=== PATIENT | female | born 1960 | race Caucasian/White ===

== ENCOUNTER 2020-10-14 08:15 | Outpatient (REF) | payer BC, SELFPAY ==
--- NOTE | ~2020-10-14 | MM_ITS ---
EXAMINATION: MM SCREENING DIGITAL BREAST TOMOSYNTHESIS, BILATERAL CLINICAL INFORMATION: Screening. Asymptomatic. The lifetime risk of breast cancer based on the Tyrer-Cuzick Model is 8%. COMPARISON: Mammography: 10/11/2019, 08/03/2018, 05/22/2017 TECHNIQUE: Digital mammography is performed in craniocaudal and mediolateral oblique views along with computer-aided detection (CAD). Digital breast tomosynthesis is performed in implant-displaced craniocaudal and implant-displaced mediolateral oblique views along with computer-aided detection (CAD). Synthesized 2D images are generated from the tomosynthesis. Additional right MLO view is provided. FINDINGS: There are scattered areas of fibroglandular density (ACR BI-RADS breast composition Category b). There are no significant masses, abnormal calcifications, or other abnormalities. The implant contours are smooth and similar to prior studies. Parenchymal pattern is similar to prior exams. No developing density. The axilla are unremarkable. MM/MM tomosynthesis screen imp BI IMPRESSION: No mammographic evidence of malignancy. ASSESSMENT: BI-RADS 1: Negative RECOMMENDATION: Routine annual mammography screening. This patient's information was entered into a reminder system with a target due date for their next mammogram.
== END 2020-10-14 08:16 | disposition home or self-care (01) ==
LOC: HO.MAMMO 08:15
PROVIDERS: PCP Nurse Practitioner Family; Visit Provider Nurse Practitioner Family
DX: Z12.31 Encounter for screening mammogram for malignant neoplasm of breast (principal)
CPT/HCPCS: 77063; 77067

== ENCOUNTER 2021-03-31 07:38 | Outpatient (REF) | payer BC, SELFPAY ==
[2021-03-31 08:30] LABS: COVID-19 Test Negative (Negative)
== END 2021-03-31 07:39 | disposition home or self-care (01) ==
LOC: HO.LAB 07:38
PROVIDERS: Visit Provider Internal Medicine
DX: Z20.822 Contact with and (suspected) exposure to COVID-19 (principal)
CPT/HCPCS: 36415; 87635; C9803

== ENCOUNTER 2021-05-11 14:00 | Outpatient (RCR) | payer BC, SELFPAY | END 2021-05-17 11:39 | disposition home or self-care (01) | LOC: HO.PT 14:00 | PROVIDERS: PCP Nurse Practitioner Family; Visit Provider Nurse Practitioner Family | DX: R42 Dizziness and giddiness (principal) | CPT/HCPCS: 95992; 97162 ==

== ENCOUNTER 2021-10-19 07:33 | Outpatient (REF) | payer BC, SELFPAY ==
--- NOTE | ~2021-10-19 | MM_ITS ---
EXAMINATION: MM SCREENING DIGITAL BREAST TOMOSYNTHESIS, BILATERAL CLINICAL INFORMATION: Screening. Asymptomatic. The lifetime risk of breast cancer based on the Tyrer-Cuzick Model is 10%. COMPARISON: Mammography: 10/14/2020, 10/11/2019, 08/03/2018, 05/22/2017 TECHNIQUE: Digital mammography is performed in craniocaudal and mediolateral oblique views along with computer-aided detection (CAD). Digital breast tomosynthesis is performed in implant-displaced craniocaudal and implant-displaced mediolateral oblique views along with computer-aided detection (CAD). Synthesized 2D images are generated from the tomosynthesis. FINDINGS: There are scattered areas of fibroglandular density (ACR BI-RADS breast composition Category b). Parenchymal pattern is similar to prior studies. No developing density or interval mass or architectural abnormality. No abnormal calcifications. The implant contours are smooth and similar to prior exams. The axilla are unremarkable. No significant changes from prior studies. MM/MM tomosynthesis screen imp BI IMPRESSION: No mammographic evidence of malignancy. ASSESSMENT: BI-RADS 1: Negative RECOMMENDATION: Routine annual mammography screening. This patient's information was entered into a reminder system with a target due date for their next mammogram.
== END 2021-10-19 07:34 | disposition home or self-care (01) ==
LOC: HO.MAMMO 07:33
PROVIDERS: Visit Provider Nurse Practitioner Family
DX: Z12.31 Encounter for screening mammogram for malignant neoplasm of breast (principal)
CPT/HCPCS: 77063; 77067

== ENCOUNTER 2021-12-28 07:46 | Outpatient (REF) | payer BC, SELFPAY ==
--- NOTE | ~2021-12-28 | XR_ITS ---
EXAMINATION: XR SHOULDER, RIGHT CLINICAL INFORMATION: Right shoulder pain COMPARISON: None TECHNIQUE: Three views of the right shoulder. FINDINGS: Bone alignment is normal. No fracture or dislocation is seen. There is mild arthritis at the acromioclavicular and glenohumeral joints. Soft tissues are unremarkable. XR/XR shoulder RT min 2V IMPRESSION: Mild arthritis.
== END 2021-12-28 07:47 | disposition home or self-care (01) ==
LOC: HO.HOSX 07:46
PROVIDERS: Visit Provider Physician Assistant
DX: M25.511 Pain in right shoulder (principal)
CPT/HCPCS: 73030

== ENCOUNTER 2022-01-25 17:03 | Outpatient (REF) | payer BC, SELFPAY ==
--- NOTE | ~2022-01-25 | XR_ITS ---
EXAMINATION: XR WRIST, RIGHT CLINICAL INFORMATION: Pain. COMPARISON: None TECHNIQUE: PA, lateral, and oblique views of the right wrist. FINDINGS: No acute fractures or malalignment. Decreased bone mineralization. 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 No erosions. No abnormal soft tissue calcifications. Diffuse nonspecific soft tissue swelling. XR/XR wrist RT min 3V IMPRESSION: 1. No acute fractures or malalignment. 2. 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
== END 2022-01-25 17:04 | disposition home or self-care (01) ==
LOC: HO.HOSX 17:03
PROVIDERS: Visit Provider Orthopaedic Surgery
DX: M25.531 Pain in right wrist (principal)
CPT/HCPCS: 73110

== ENCOUNTER 2022-03-29 07:00 | Outpatient (RCR) | payer BC, SELFPAY ==
--- NOTE | 2022-03-11 14:30 | MHC.PT.EP ---
[facility] [place] Office [place] Office [place] Office [address] [place] [address] [address] [phone] F: [phone] F: [phone] F: [phone] F: [phone] Physical Therapy Plan of Care Date of Evaluation: Date of Surgery: Diagnosis: Rt RC TEAR, RUPTURE Rt SHOULDER Assessment: 62 YO FEMALE REF TO PT W Rt SHOULDER PAIN- PROGRESSIVE x 2-3 MONTHS. 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 Pt HAS LIMITED AROM IN Rt SH AND CERV REGION, DECR STRENGTH IN Rt SH COMPLEX, (+) PAIN W PALP Rt ANT GH AND MID DELT. FINDINGS CONSISTENT W A SHOULDER IMPINGEMENT AND POSSIBLE RC INVOLVEMENT- FUNCTIONAL LIMITATIONS INCLUDE TYPING, LIFTING, REACHING ABOVE OR POSTERIORLY, ETC. Pt WOULD BENEFIT FROM PT TO ADDRESS THE ABOVE FINDINGS, MONITOR CERVICAL SXS, REVISE HEP/ EXER ROUTINE, AND DEV SELF-SX MGMT TECHN TO REDUCE IMPINGEMENT TYPE SXS AT THIS TIME. Frequency and Duration: The patient will be seen 2 x WK x 5 WKS Short Term Goals: *Pt'S Rt SH PAIN DECR TO 2-3/10 AT MAX W REG ADLS/ WORK *Pt INDEP W SELF-CORRECTION OF HER POSTURE IN VARIED ADL OR WORK TASKS *Pt DEMON (-) Rt IMPINGEMENT SIGN *Pt DEMON IMPROVED AROM Rt SH AND CERV REGION Fdc Goals: *PT INDEP W PROGR HEP AND SELF SX MGMT TECHN IN 4 WKS *Pt DEMON IMPROVED STRENGTH IN Rt SH COMPLEX *Pt RESUME REG ADLS EVIDENT W IMPROVED SPADI SCORE (32/130 AT EVAL)IN 4 WKS Treatment Plan: Modalities to reduce pain, spasms and effusion. Manual therapy to restore motion and function. Therapeutic exercise to improve strength and flexibility. Neuromuscular re-education for posture and balance. Therapeutic activities to return to functional activities of daily living. Electronically signed by: VICENTE ROBLEDO,PT Please sign and return to therapist. Thank you for your referral.
--- NOTE | 2022-04-19 08:47 | MHC.PT.DC ---
[facility] [place] Office [place] Office [place] Office [address] Ken Devine [address] [phone] F: [phone] F: [phone] F: [phone] F: [phone] Physical Therapy Discharge Report Diagnosis: Rt RC TEAR, RUPTURE Rt SHOULDER Date of Surgery: Date of Evaluation: 03/11/22 Date of Discharge: 04/19/22 Treatments to Date: 6 Cancellations to Date: 0 No Shows to Date: 0 Discharge Status: Achieved Goals Improved Function Independent with HEP Patient Elected to Stop Discharge Summary: THE Pt HAS RESPONDED WELL TO PT INTERVENTION FOR Rt SHOULDER/ CERVICAL PAIN- SHE DEMON IMPROVED POSTURAL SELF-CORRECTION AND WE MODIFIED HER HEP TO REDUCE FURTHER STRESS TO HER LEFT RC/ AND CERVICAL REGIONS. Pt PLEASED W HER PROGRESS AND HAS MET HER PT GOALS AT THIS TIME- SHE WAS NOTING VERTIGO SXS AND WE EDUC Pt RE PURSUING TREATMENT IS THESE SXS PERSIST. Electronically signed by: VICENTE ROBLEDO,PT Please sign and return to therapist. Thank you for your referral.
== END 2022-04-19 08:48 | disposition home or self-care (01) ==
LOC: HO.PT 07:00
PROVIDERS: Visit Provider Physician Assistant
DX: M75.102 Unspecified rotator cuff tear or rupture of left shoulder, not specified as traumatic (principal)
CPT/HCPCS: 97110; 97140; 97162

== ENCOUNTER 2022-05-27 08:00 | Outpatient (RCR) | payer BC, SELFPAY ==
[2022-05-23 08:02] VITALS: BP 104/63; PULSE 67
== END 2022-06-24 15:04 | disposition home or self-care (01) ==
LOC: HO.PT 08:00
PROVIDERS: PCP Nurse Practitioner Family; Visit Provider Nurse Practitioner Family
DX: R42 Dizziness and giddiness (principal); M75.102 Unspecified rotator cuff tear or rupture of left shoulder, not specified as traumatic
CPT/HCPCS: 95992; 97112; 97161

== ENCOUNTER → 2022-10-25 07:30 | Outpatient (BNV) | payer BC, SELFPAY | PROVIDERS: PCP Nurse Practitioner Family; Visit Provider Radiology Diagnostic Radiology | DX: Z12.31 Encounter for screening mammogram for malignant neoplasm of breast (principal) | CPT/HCPCS: 77063; 77067 ==

== ENCOUNTER 2022-10-25 07:31 | Outpatient (REF) | payer BC, SELFPAY ==
--- NOTE | ~2022-10-25 | MM_ITS ---
EXAMINATION: BONE DENSITOMETRY CLINICAL INDICATION: Osteopenia. COMPARISON: Baseline BD dated 10/11/2019. TECHNIQUE: Using a Lukkin DXA System (software version: 13.1) manufactured by [employer], dual-energy x-ray absorptiometry was performed of the lumbar spine and left hip. The images are of good technical quality. Summary results are attached. FINDINGS: LEFT FEMUR, NECK: Current: BMD 0.914 g/cm2, Z-score 0.4, T-score -0.9, normal. Baseline: BMD 0.877 g/cm2. LEFT FEMUR, TOTAL: Current: BMD 0.915 g/cm2, Z-score 0.3, T-score -0.7, normal, 0.2% decrease from baseline (<5% change is not significant). Baseline: BMD 0.917 g/cm2. AP SPINE L1-L4: Current: BMD 1.046 g/cm2, Z-score 0.2, T-score -1.1, osteopenia, 0.4% decrease from baseline (<5% change is not significant). Baseline: BMD 1.050 g/cm2. IDENTIFIED RISK FACTORS: Menopause. HISTORY OF FRACTURE: None listed. MEDICATIONS: Calcium or multivitamin. Vitamin D. MM/XR DEXA axial skeleton IMPRESSION: 1. DIAGNOSIS: Osteopenia based on the lowest T-score value of -1.1 in the lumbar spine applying World Health Organization criteria. 2. 10-YEAR FRACTURE RISK PREDICTION, FRAX: Major osteoporotic fracture (clinical spine, forearm, hip or shoulder) 7.8%. Hip fracture 0.5%. 3. Treatment Recommendations: NOF guidelines recommend consideration for treatment in postmenopausal women and men age 50 and older presenting with the following: -A hip or vertebral (clinical or morphometric) fracture. -T-score less than or equal to -2.5 at the femoral neck or spine after appropriate evaluation to exclude secondary causes. -Low bone mass at the hip or spine and a 10-year fracture probability by FRAX of greater than or equal to 3% for hip fracture or greater than or equal to 20% for major osteoporotic fracture based on the [place] adapted WHO algorithm. 4. Other Recommendations: All treatment decisions require clinical judgment and consideration of individual patient factors, including patient preferences, comorbidities, previous drug use, risk factors not captured in the FRAX model (e.g. frailty, falls, vitamin D deficiency, increased bone turnover, interval significant decline in bone density) and possible under or overestimation of fracture risk by FRAX. Additional medical evaluation for secondary cause of low bone mineral density may be appropriate. FUTURE SCAN RECOMMENDATION: People with diagnosed cases of osteoporosis or at high risk for fracture should have regular bone mineral density tests. For patients eligible for Medicare, routine testing is allowed once every 2 years. The testing frequency can be increased to one year for patients who have rapidly progressing disease, those who are receiving or discontinuing medical therapy to restore bone mass, or have additional risk factors.
--- NOTE | ~2022-10-25 | MM_ITS ---
EXAMINATION: MM SCREENING DIGITAL BREAST TOMOSYNTHESIS, BILATERAL CLINICAL INFORMATION: Screening. Asymptomatic. The lifetime risk of breast cancer based on the Tyrer-Cuzick Model is 6.9%. COMPARISON: Mammography: 10/19/2021, and exams dating back to 2014. TECHNIQUE: Digital mammography is performed in craniocaudal and mediolateral oblique views along with computer-aided detection (CAD). Digital breast tomosynthesis is performed in implant-displaced craniocaudal and implant-displaced mediolateral oblique views along with computer-aided detection (CAD). Synthesized 2D images are generated from the tomosynthesis. FINDINGS: There are scattered areas of fibroglandular density (ACR BI-RADS breast composition Category b). There are no significant masses, abnormal calcifications, or other abnormalities. Implants appear smooth and intact without evidence of complication. The overall parenchymal pattern is stable. MM/MM tomosynthesis screen imp BI IMPRESSION: No mammographic evidence of malignancy. ASSESSMENT: BI-RADS BI-RADS 1 - Negative RECOMMENDATION: Routine annual mammography screening. 1 year F/U This patient's information was entered into a reminder system with a target due date for their next mammogram.
== END 2022-10-25 07:32 | disposition home or self-care (01) ==
LOC: HO.MAMMO 07:31
PROVIDERS: PCP Nurse Practitioner Family; Visit Provider Nurse Practitioner Family
DX: Z12.31 Encounter for screening mammogram for malignant neoplasm of breast (principal); Z13.820 Encounter for screening for osteoporosis; Z78.0 Asymptomatic menopausal state; M85.80 Other specified disorders of bone density and structure, unspecified site
CPT/HCPCS: 77063; 77067; 77080

== ENCOUNTER 2023-01-22 21:07 | Emergency (ER) | payer BC, SELFPAY ==
[2023-01-22 21:12] VITALS: BP 126/76; PULSE 70; RESP 18; TEMP 36.7; O2SAT 96; BMI 26.6
--- NOTE | 2023-01-22 22:35 | ED_ITS ---
HPI - General Adult General Chief complaint: General Medical Stated complaint: Accidental epi pen stick Time Seen by Provider: 01/22/23 22:35 Source: patient Mode of arrival: ambulatory Limitations: no limitations History of Present Illness HPI narrative: 62-year-old female who presents emergency department for evaluation of accidental injection of epinephrine into her right thumb. The patient was helping her sister clean out her closet. There was an epinephrine pen which the patient took to the sink and a attempted to empty the pen into the sink. She states she pushed on the orange part of the EpiPen and accidentally injected epinephrine into her right thumb. She states that it took some effort to pulled the needle out of her thumb. Her thumb became very white and cold. She L upset palpitations but no chest pain, lightheadedness or dizziness. She contacted department to have nitroglycerin paste placed on her thumb. At the time my evaluation, the tip of the patient's thumb has a small puncture wound and is ecchymotic. The patient's thumb is warm and neurovascularly intact. Related Data Home Medications Medication Instructions Recorded Confirmed No Known Home Meds 12/28/21 01/26/22 Allergies Allergy/AdvReac Type Severity Reaction Status Date / Time No Known Allergies Allergy Unverified 01/26/22 12:35 [No Known Allergies*] Review of Systems Review of Systems: Yes all other systems are reviewed and are negative [facility] Past Medical History [facility] Narrative: Past medical history: Arthritis Social History Social History Alcohol intake: current Alcohol intake frequency: holidays/special occasions only Alcohol type: wine Patient Tobacco Use Status: Never used Tobacco Current occupational status: employed 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, 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 Physical Exam ED Vital Signs: Vital Signs - 24 hr 01/22/23 21:12 Temperature 98.0 F Pulse Rate 70 Respiratory Rate 18 Blood Pressure 126/76 Pulse Oximetry 96 Oxygen Delivery Method Room Air BMI result Body Mass Index 26.6 Vital signs were no Exam: General: Awake, alert in no distress Extremities: Examination patient's right thumb reveals a very small puncture wound at the tip of the thumb, the tip of the thumb is ecchymotic, thumb is neurovascularly intact Psych: Pleasant, cooperative Medical Decision Making Medical Decision Making MDM Narrative: 62-year-old female who presents emergency department for evaluation for accidental injection EpiPen into her right thumb. Patient most likely receive the full dose in her thumb based on her description. At the time of evaluation however her thumb is neurovascularly intact and does not appear to be vascularly compromised. She does have a small puncture wound to the tip of her thumb with ecchymosis. The patient does not know her last tetanus shot was given an I advised her to contact her PCP tomorrow and if her last tetanus shot was 5 years or greater than this should be updated to help restore immunity against tetanus. The patient was advised to watch for signs of infection and to follow-up with her PCP if she develops any signs. At this time I do not think that the patient needs any further workup. Differential Diagnosis Differential Diagnoses: The differential diagnosis associated with the presentation includes Differential diagnosis includes but is not limited to accidental injection of EpiPen in to the thumb, vascular compromise, infection Discharge Plan Discharge Clinical Impression: Accidental injection of epinephrine Qualifiers: Encounter type: initial encounter Qualified Code(s): T44.5X1A - Poisoning by predominantly beta-adrenoreceptor agonists, accidental (unintentional), initial encounter Additional Instructions: You accidentally injected herself with epinephrine into your left thumb. At this time your thumb looks normal with just some bruising, there is no vascular compromise and I do not think that you need any further treatment such as nitro paste. Whenever there is a puncture wound, we worry about tetanus exposure. Call your doctor tomorrow morning, if your last tetanus shot was 5 years or greater, then you need a tetanus shot within the next several days to booster your immune system against tetanus. Watch for signs of infection which would include redness, swelling, drainage of pus, red streaks going away from the wound. If you developed any signs of infection then you should talk to her doctor about getting started on antibiot ics. Follow-up with your doctor in 2 days. Please return to the emergency department if your symptoms get worse or if you develop any symptoms that are concerning to you. Prescriptions: No Action No Known Home Meds
[2023-01-22 22:58] VITALS: BP 119/74; PULSE 76; RESP 16; TEMP 36.7; O2SAT 96
== END 2023-01-22 23:05 | disposition home or self-care (01) ==
PROVIDERS: Emergency Provider Emergency Medicine Emergency Medical Services; PCP Nurse Practitioner Family
DX: S61.031A Puncture wound without foreign body of right thumb without damage to nail, initial encounter (principal); W26.9XXA Contact with unspecified sharp object(s), initial encounter; Y93.9 Activity, unspecified; Y92.9 Unspecified place or not applicable; Y99.9 Unspecified external cause status
CPT/HCPCS: 99282; 99284

== ENCOUNTER 2023-11-02 07:22 | Outpatient (REF) | payer MEDICARE, SELFPAY ==
--- NOTE | ~2023-11-02 | MM_ITS ---
EXAMINATION: MM SCREENING DIGITAL BREAST TOMOSYNTHESIS, BILATERAL WITH BREAST IMPLANTS CLINICAL INFORMATION: Screening. Asymptomatic. COMPARISON: Mammography: This study is compared to prior mammography dating back to 2020. TECHNIQUE: Digital mammography is performed in craniocaudal and mediolateral oblique views along with computer-aided detection (CAD). Digital breast tomosynthesis is performed in implant-displaced craniocaudal and implant-displaced mediolateral oblique views along with computer-aided detection (CAD). Synthesized 2D images are generated from the tomosynthesis. FINDINGS: There are scattered areas of fibroglandular density (ACR BI-RADS breast composition Category b). There are bilateral, mammographically intact, retroglandular breast implants. There are no significant masses, abnormal calcifications, or other abnormalities. MM/MM tomosynthesis screen imp BI IMPRESSION: There are no significant changes from prior study. ASSESSMENT: BI-RADS BI-RADS 1 - Negative RECOMMENDATION: Routine annual mammography screening. 1 year F/U This patient's information was entered into a reminder system with a target due date for their next mammogram.
== END 2023-11-02 07:23 | disposition home or self-care (01) ==
LOC: HO.MAMMO 07:22
PROVIDERS: PCP Student in an Organized Health Care Education/Training Program; Visit Provider Student in an Organized Health Care Education/Training Program
DX: Z12.31 Encounter for screening mammogram for malignant neoplasm of breast (principal)
CPT/HCPCS: 77063; 77067

== ENCOUNTER → 2023-11-02 07:30 | Outpatient (BNV) | payer MEDICARE, SELFPAY | PROVIDERS: PCP Student in an Organized Health Care Education/Training Program; Visit Provider Radiology Diagnostic Radiology | DX: Z12.31 Encounter for screening mammogram for malignant neoplasm of breast (principal) | CPT/HCPCS: 77063; 77067 ==

== ENCOUNTER 2024-12-21 09:06 | Outpatient (REF) | payer MEDICARE, SELFPAY ==
--- NOTE | ~2024-12-21 | MM_ITS ---
EXAMINATION: MM SCREENING DIGITAL BREAST TOMOSYNTHESIS, BILATERAL CLINICAL INFORMATION: Screening. Asymptomatic. COMPARISON: Mammography: Comparison is made with relevant avialable priors. TECHNIQUE: Digital mammography is performed in craniocaudal and mediolateral oblique views along with computer-aided detection (CAD). Digital breast tomosynthesis is performed in implant-displaced craniocaudal and implant-displaced mediolateral oblique views along with computer-aided detection (CAD). FINDINGS: There are scattered areas of fibroglandular density (ACR BI-RADS breast composition Category b). Right prepectoral saline implant is stable. The left implant is ruptured and distorted. There are no significant masses, abnormal calcifications, or other abnormalities. MM/MM tomosynthesis screen imp BI IMPRESSION: No mammographic evidence of malignancy. Ruptured left implant. ASSESSMENT: BI-RADS BI-RADS 2 - Benign Findings RECOMMENDATION: Routine annual mammography screening. Recommend clinical follow-up for ruptured left implant. 1 year F/U This patient's information was entered into a reminder system with a target due date for their next mammogram. Electronically signed by: Pat Cuevas DO 12/23/2024 09:56 AM EDT
--- OUTSIDE RECORDS SUMMARY | 2024-12-21 09:09 | XMS_ITS | Clinical Summary ---
Author Organization [facility] Address [address] [place] [address] Care Team Providers Care Malware Analyst Name Role Phone Unavailable Primary Care Provider Unavailabl e Social History Tobacco Use Types Packs/Day Years Used Date Smoking Tobacco: Never Assessed Comments Unknown Sex and Gender Information Value Date Recorded Sex Assigned at Not on file Legal Sex Female 10:40 AM EDT Gender Identity Not on file Sexual Orientation Not on file Plan of Treatment Upcoming Encounters Date Type Department Care Team (Latest Contact Info) Description 02/25/2025 7:30 AM EST Hospital Encounter [address] [phone] Gelacio Guzman MD [address] [facility] [address] [place] [address] 02/25/2025 7:30 AM EST - 02/25/2025 9:48 AM EST Surgery [address] [phone] Gelacio Guzman MD [address] [facility] [address] [place] [address] REMOVAL BREAST IMPLANT NAHUM Scheduled Procedures Name Priority Associated Diagnoses Date/Ti me REMOVAL BREAST IMPLANT NAHUM Breast implant rupture, initial encounter Congenital hypoplasia of breast 02/25/2025 7:30 AM EST AUGMENTATION BREAST BILATERAL Breast implant rupture, initial encounter Congenital hypoplasia of breast 02/25/2025 7:30 AM EST Health Maintenance Due Date Last Done Comments Advance Care Planning 1960 Hepatitis C Virus Screening 1960 DTaP/Tdap/Td Vaccines (1 - Tdap) 1977 Pneumococcal Vaccines 50+ (1 of 1 - PCV) 2008 Zoster (Shingles) Vaccine (1 of 2) 2008 COVID-19 Vaccine (1 - season) 2024 RSV Vaccine 60 years and older and Patients (1 - 1-dose 75+ series) 2033 Influenza Vaccine Discontinued 02/01/2019, 01/25/2018 Hepatitis B Vaccines Aged Out No long er eligible based on patient's age to complete this topic Goals Goal Patient Goal Type Associated Problems Recent Progress Patient-Stated? Author Autogenera moncho Goal Care Plan Autogenerated Problem No Eliz Mccoy Additional Health Concerns Active Problems Noted Date Diagnosed Date Autogenerated Problem 12/20/2024
--- OUTSIDE RECORDS SUMMARY | 2024-12-21 09:09 | XMS_ITS | Encounter Summary ---
Author Organization [facility] Address [address] [place], [place] [id number] Phone Care Team Providers Care Fender Repairer Name Role Phone Marco Wilde MD Unavailable Chelsey Saini NP Unavailable [phone] Jie Romero ASSISTANT ASSOCIATE FULL PROFESSOR Unavailable [phone] Jie Romero ASSISTANT ASSOCIATE FULL PROFESSOR Primary Care Provider Unknown, Unknown Primary Care Provider Prachi Samuels Primary Care Provider Encounter Details Date Type Department Care Team (Late st Contact Info) Description 05/22/2017 Ancillary Orders [facility] [address] [place] [id number] Yoko Bonilla MD [address] [place] [address] Orthopedics & Sports Medicine, [facility] [place] [address] [email or web address] Social History Tobacco Use Types Packs/Day Years Used Date Smoking Tobacco: Former Cigarettes 0.3 10 0 09/08/1977 - 09/09/1987 Smokeless Tobacco: Never Alcohol Use Standard Drinks/Week Comments Yes 6 (1 standard drink = 0.6 oz pur e alcohol) Comments Unknown Sex and Gender Information Value Date Recorded Sex Assigned at Not on file Legal Sex Female 9:51 PM EDT Gender Identity Not on file Sexual Orientation Not on file documented as of this encounter Plan of Treatment Upcoming Encounters Date Type Department Care Team (Late st Contact Info) Description 02/17/2025 1:00 PM EST Office Visit [address] [place] [address] Prachi Jacob [address] [place] [address], [address] [place] [address] [email or web address] 09/05/2025 4:00 PM EDT Office Visit [address] [place] [address] Lew Jacobia [address] [place] [address], [address] [place] [address] [email or web address] documented as of this encounter Visit Diagnoses Not on filedocumented in this encounter Additional Health Concerns Infection Onset Date Last Indicated Resolved Time CoV-Presumed 04/04/2022 04/04/2022 04/25/2022 1:21 AM EST Assessment Noted Time PHQ-2 Depression Total Score: 0 04/25/19 18 2:18 PM EST documented as of this encounter Care Teams Fender Repairer Relationship Specialty Start Date End Date Jie Romero NP [address] [place] [phone] PCP - General Family Medicine 04/07/17 06/11/23 Unknown, Unknown, PCP - General 06/12/23 08/13/23 Prachi Jacob [address] [place] [address], [address] [place] [address] PCP - General Family Medicine 08/14/23 Marco Wilde MD [address] [place] [id number] [email or web address] Historical LMR Provider 01/26/17 04/17/21 Chelsey Saini NP [address] [facility] [address] [place] [phone] Historical LMR Provider 01/26/17 2 Jie Romero NP [address] [facility] [address] [place] [phone] [email or web address] Historical LMR Provider 01/26/17 documented as of this encounter Additional Source Comments The information contained in this document represents components of the legal health record. It is not the complete legal health record.[facility]
--- OUTSIDE RECORDS SUMMARY | 2024-12-21 09:09 | XMS_ITS | Clinical Summary ---
Author Organization [facility] Address [address] [place] [address] Phone Care Team Providers Care Computer Network Engineer Name Role Phone Jie Romero FIELD SERVICE REP Unavailable [phone] Prachi Jacob Primary Care Provider Allergies No known active allergies Medications cholecalciferol (VITAMIN D3) 2,000 unit capsule Take 2,000 Units by mouth daily. Active hydrocortisone-p ramoxine (PROCTOFOAM-HC) rectal foam Place 1 applicator rectally 2 (two) times a day as needed for hemorrhoid discomfort. 10 g 2 4 Active fluticasone propionate (FLONASE) 50 mcg/actuation nasal spray 1 spray by Nasal route daily. Active acyclovir (ZOVIRAX) 5 % ointment Active valACYclovir (VALTREX) 1000 MG tablet 2 tabs every 12 hours x 2 doses per outbreak 16 tablet 3 5 Active omeprazole (PRILOSEC) 40 MG capsuleIndicatio ns:Gastroesophag eal reflux disease without esophagitis TAKE 1 CAPSULE (40 MG TOTAL) BY MOUTH DAILY. 90 capsule 5 Active Active Problems Problem Noted Date Diagnosed Date Osteoarthritis 08/26/2024 Assessment & Plan (08/26/2024 3:14 PM EDT): Reports she feels like she has arthritis to all her joints especially her hands. Can't do any weight bearing on her hands like pushups. Uses heat and ice, Biofreeze and Voltaren. Gastroesophageal reflux disease without esophagi tis 10/10/2023 Assessment & Plan (08/26/2024 3:07 PM EDT): Has cut out black coffee, always puts in a milk. Will only have breakthrough symptoms if she eats something fatty. Has been taking 40mg of omeprazole daily. Will have to switch to as needed. Assessment & Plan (10/10/2023 3:49 PM EDT): Still having some symptoms, though less frequently since starting the Prilosec. Will increase to 40mg, have patient take before dinner rather than in the morning. Will continue with lifestyle modifications, make sure she stays upright after meals or goes for a walk. Follow up in 6 weeks. If symptoms persist, may consider referral to GI. Hemorrhoids 05/05/2023 Assessment & Plan (08/26/2024 3:08 PM EDT): Intermittently an issue. Uses preparation H as needed. Has Proctofoam to use as needed but this is rare. Osteopenia after menopause 02/04/2020 Assessment & Plan (08/26/2024 3:11 PM EDT): Takes vitamin D and calcium. Does circuit strength training 4 days a week at a gym. 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 Resolved Problems Problem Noted Date Diagnosed Date Resolved Date Atypical chest pain 08/15/2023 08/27/19 25 Assessment & Plan (10/10/2023 3:51 PM EDT): Stress test was negative, patient is active and labs were reassuring in April of this year. I do think symptoms are likely not cardiac in nature despite family history. Still will continue to monitor and pursue further cardiac workup if appropriate. Assessment & Plan (08/15/2023 4:44 PM EDT): Will start omeprazole 20 mg daily 30-60 minutes before breakfast. Continue to avoid known triggers, try reducing caffeine intake further. Track symptoms. Given family history of CAD and father with multiple MIs I do recommend a stress test. She will get this scheduled. She will establish care with Dr. Carline Anaya on 08/30. We reviewed symptoms that would warrant ER evaluation and symptoms that would warrant a return call here. She verbalizes understanding. Labs 04/2023 were reassuring. If symptoms do not improve, consider updating blood work. Family history of heart attack 08/15/2023 08/26/2024 Overweight 01/25/2018 08/26/2024 History of herpes labialis 04/25/2017 0 04/22/2022 Encounters Date Type Department Care Team Description 10/25/2024 Refill [facility] [place] [facility] [address] [place] [address] Prachi Jacob Medication Refill from Last 3 Months Immunizations Immunization Administration Dates Next Due COVID-19 (Pre-01/30) Moderna Vaccine, mRNA, PF 03/05/2021 Influenza High-Dose Quadriva lent Preservative Free IM 05/05/2023 Influenza Quadrivalent Prese rvative Free IM 04/22/2022,04/16/2021,02/04/2020,2018,01/25/2018 Pneumococcal conjugate PCV20 08/26/2024 RSV Vaccine (monovalent, adjuvanted) 01/07/2023 Tdap 02/01/2019 Zoster recombinant 04/17/2020,02/04/2020 Family History Medical History Relation Comments No Known Problems Daughter Heart attack Father x 3 No Known Problems Maternal Grandfather No Known Problems Maternal Grandmother Alzheimer's disease Mother No Known Problems Paternal Grandfather No Known Problems Paternal Grandmother Spinal Stenosis Sister 1 Arthritis Sister 2 Hypertension Sister 2 Relation Status Comments Daughter Alive Father (Age 67) Maternal Grandfather Maternal Grandmother Mother (Age 87) Paternal Grandfather Paternal Grandmother Sister 1 Alive Sister 2 Alive Social History Tobacco Use Types Packs/Day Years Used Date Smoking Tobacco: Former Cigarettes 0.3 10 0 09/08/1977 - 09/09/1987 Smokeless Tobacco: Never Tobacco Cessation:Counseling Given: Not Answered Alcohol Use Standard Drinks/Week Comments Yes 0 (1 standard drink = 0.6 oz pur e alcohol) 1-2 drinks, 2-4 x month Child or Family Care Answer Date Record ed Do you have problems with on e of the following making it difficult for you to work, study, or receive health care? No 08/24/2023 Education Answer Date Recorded Are you interested in help w ith more adult education (for example, completing high school, GED, job training, learning the Lebanese language, technical skills, or developing parenting skills)? No 08/24/2023 Are you concerned about learning? Not on file 08/24/2023 No 08/24/2023 Yes 08/24/2023 Food Answer Date Recorded Within the past 6 months we worried whether our food would run out before we got money to buy more. Never True 08/24/2023 Within the past 6 months the food we bought just didn't last and we didn't have enough money to get more. Never True Residential Stability Answer Date Recor ded What is your housing situation today? I have scotty sing 08/24/2023 How many times have you move d in the past 12 months? Zero (I did not move) 08/24/2023 Paying for Meds Answer Date Recorded Do you have trouble paying for medicines? No 08/24/2023 Paying Utility Bills Answer Date Record ed Do you have trouble paying your heating or elect ricity bill? No 08/24/2023 Transportation Answer Date Recorded Has the lack of transportati on kept you from medical appointments or from getting medications? No 08/24/2023 Unemployment Answer Date Recorded Are you currently unemployed or working on a part-time or temporary basis, and looking for work? No 04/16/2021 Digital Access Answer Date Recorded No 08/24/2023 Yes 08/24/2023 Do you have reliable internet access at home? Ye s 08/24/2023 Do you have a device (e.g., phone, tablet, computer) with a working camera? Yes 08/24/2023 Intimate Partner Violence Answer Date R ecorded Denied Basic Needs Not on file 08/19/2024 In the past 12 months have y ou been in a relationship with a person who hurts, threatens, or tries to control you? No 08/19/2024 Worried food would run out Not on file 08/19 In the past 12 months have y ou been in a relationship with a person who hurts, threatens, or tries to control you? No 08/19/2024 Comments No Sex and Gender Information Value Date Recorded Sex Assigned at Not on file Legal Sex Female 9:51 PM EDT Gender Identity Not on file Sexual Orientation Not on file Last Filed Vital Signs Vital Sign Reading Time Taken Comments Blood Pressure 102/56 08/26/2024 2:51 PM EDT Pulse 72 08/26/2024 2:51 PM EDT Temperature 36.1 C (97 F) 08/26/2024 2:51 PM EDT Respiratory Rate 16 05/05/2023 2:27 PM EST Oxygen Saturation 96% 08/26/2024 2:51 PM EDT Inhaled Oxygen Concentration - - Weight 77.7 kg (171 lb 6.4 oz) 08/26/2024 2:51 P M EDT Height 165.9 cm (5' 5.32 ) 08/26/2024 2:51 PM ED T Body Mass Index 28.25 08/26/2024 2:51 PM EDT Plan of Treatment Upcoming Encounters Date Type Department Care Team (Late st Contact Info) Description 02/17/2025 1:00 PM EST Office Visit [address] [place] [address] Prachi Jacob [address] [place] [address], [address] [place] [phone] [email or web address] 09/05/2025 4:00 PM EDT Office Visit [address] [place] [address] Prachi Jacob [address] [place] [address], [address] [place] [phone] [email or web address] Health Maintenance Due Date Last Done Comments COLOGUARD 2003 FIT TEST 2003 FOBT 2003 SIGMOIDOSCOPY 2003 VIRTUAL COLONOSCOPY 2003 COLONOSCOPY 10/08/2024 10/09/2019, 03/27/2009 COLORECTAL CANCER SCREENING 10/08/2024 FOLLOW UP BONE DENSITY TESTING 10/25/2024 10/25/2022, 10/11/2019 INFLUENZA VACCINE (#1) 2024 , 04/22/2022, 04/16/2021, Additional history exists COVID-19 VACCINE ( season) 2024 01/07/2023, 09/03/2021, 03/05/2021, Additional history exists DEPRESSION SCREENING 08/19/2025 08/19/2024 MAMMOGRAM 11/01/2025 11/02/2023, 10/08, 10/19/2021, Additional history exists SCREENING FOR DIABETES 05/05/2026 05/05/2023, 2017 LIPID PANEL 05/05/2028 05/05/2023, 0 10/2021, 02/01/2019, Additional history exists Adult Td,Tdap Booster 02/01/2029 02/01/2019 HEPATITIS C SCREENING Completed 02/01/2019 ZOSTER VACCINES Completed 04/17/2020, 02/04/2020 OSTEOPOROSIS SCREENING INITIAL (ONE-TIME) Completed 10/25/2022, 10/11/2019 RSV VACCINE Completed 01/07/2023 PNEUMOCOCCAL VACCINES (50+ years) Completed 08/26/2024 SMOKING STATUS SCREENING (Once After 26 Yrs) Completed 08/26/2024 HEPATITIS A VACCINES Aged Out No long er eligible based on patient's age to complete this topic HIB VACCINES Aged Out No longer eligi ble based on patient's age to complete this topic MENINGOCOCCAL VACCINES (ACWY) Aged Out No longer eligible based on patient's age to complete this topic MENINGOCOCCAL VACCINES (B) Aged Out N o longer eligible based on patient's age to complete this topic Medical Devices Not on file Procedures Procedure Name Priority Date/Time Associated Diagnosis Comments HM MAMMOGRAPHY Routine 11/02/2023 8:54 AM EDT LIPID PANEL Routine 05/05/2023 3:37 PM EST Routine general medical examination at a [facility] HM DEXA SCAN Routine 10/25/2022 COLONOSCOPY FOR RESULT ENTRY ONLY Routine 10/09/2019 HEPATITIS C ANTIBODY, QUALITATIVE Routine 02/01/2019 9:31 AM EDT Routine general medical examination at a health care facility OUTSIDE GLUCOSE FASTING Routine 05/22/2017 from Last 3 Months or Most Recently Relevant to Health Maintenance Results * MAMMOGRAPHY FOR RESULT ENTRY ONLY (11/02/2023 8:54 AM EDT) us Historical Provider HEALTH MAINTENANCE Edited Result - Final * (ABNORMAL) Lipid panel (05/05/2023 3:37 PM EST) HDL 75 mg/dL [facility] Comment: Interpretation <40 mg/dL: Low HDL cholesterol (major risk factor for CHD) Greater than or equal to 60 mg/dL: High HDL cholesterol ( negative risk factor for CHD) HDL - cholesterol is affected by a number of factors, e.g. smoking, excerise, hormones, sex and age. CHOLESTEROL 210 0 - 240 mg/dL [facility] TRIGLYCERIDES 119 30 - 160 mg/dL [facility] LDL 111 50 - 129 mg/dL [facility] Comment: LDL levels in terms of risk for coronary heart disease: <100 mg/dL: Optimal 100-129 mg/dL: Near or above optimal 130-159 mg/dL: Borderline high 160-189 mg/dL: High >190 mg/dL: Very High CARDIAC RISK RATIO 2.8(L) 3.3 - 4.4 C [facility] Blood 05/05/2023 3:37 PM EST 05/05/2023 3:40 PM EST us Jie Romero NP LAB BLOOD ORDERABLES Final Resu lt [facility] [address] [place] [address] * DEXA SCAN (10/25/2022) us Jie Romero NP HEALTH MAINTENANCE Edited Resul t - Final * COLONOSCOPY FOR RESULT ENTRY ONLY (10/09/2019) Pathologist [facility] Colonoscopy tubular adenoma Historical Provider HEALTH MAINTENANCE Final Result * Hepatitis C antibody, qualitative (02/01/2019 9:31 AM EDT) HCV NON-REACTIV E NON-REACTI VE [facility] Blood 02/01/2019 9:31 AM EDT 02/01/2019 9:35 AM EDT Jie Romero NP LAB BLOOD ORDERABLES Final Resu lt Performing Organization Address City/State/[facility] Co de Phone Number [address] [address] * Outside Glucose,Fasting (05/22/2017) Pathologist [facility] Glucose, fasting - External 89 65 - 99 mg/dL Historical Provider LAB BLOOD ORDERABLES Marlena l Result from Last 3 Months or Most Recently Relevant to Health Maintenance Insurance [employer] PPO MEDICARE REPLACEMENT MEDICARE PART A & [facility] MEDICARE PART A & B AET[employer] O MEDICARE REPLACEMENT MEDICARE PART A & B Member Subscriber Plan / Payer (Ef fective 2023-Present) Name:TyronKeke Member ID:[id number] Relation to Subscriber:Self Name:Keke Ackerman Subscriber ID:[id number] Payer ID:[id number] Group ID:Not on file Type:Medicare Address: [employer] [address] [place] [phone] MEDICARE REPLACEMENT MEDICARE PART A & B AETNA [facility] MEDICARE REPLACEMENT MEDICARE PART A & [facility] RE[facility] MEDICARE PART A & B Care Teams Computer Network Engineer Relationship Specialty Start Date End Date Prachi Jacob [address] [place] [address], [address] [place] [address] [email or web address] PCP - General Family Medicine 08/14/23 Jie Romero NP Historical LMR Provider 01/26/17 Additional Source Comments The information contained in this document represents components of the legal health record. It is not the complete legal health record.[facility]
--- OUTSIDE RECORDS SUMMARY | 2024-12-21 09:09 | XMS_ITS | Encounter Summary ---
Author Organization [facility] Address [address] [place] [address] [place] [address] Phone Care Team Providers Care Conservation Agent Name Role Phone Jie Romero DIRECTOR OF EVENTS Unavailable [phone] Prachi Jacob Primary Care Provider [phone] Reason for Visit * Reason Comments Medication Refill Encounter Details Date Type Department Care Team (Late st Contact Info) Description 10/25/2024 Refill [facility] [place] [facility] [address] [place] [address] Prachi Jacob [address] [facility], [address] [place] [address] [email or web address] Medication Refill Social History Tobacco Use Types Packs/Day Years Used Date Smoking Tobacco: Former Cigarettes 0.3 10 0 09/08/1977 - 09/09/1987 Smokeless Tobacco: Never Alcohol Use Standard Drinks/Week Comments Yes 0 [...] high school, GED, job training, learning the Kazakh language, technical skills, or developing parenting skills)? [...] on file documented as of this encounter Progress Notes * Madonna Garcia CNP - 10/25/2024 10:11 AM EDT * Sonya Zhou MA - 10/25/2024 8:40 AM EDT Rx Care Gap Status - Instructions for Clinical Staff (prescriber discretion applies): > Mismatch review guide > N/a - No action needed Visit Info Last visit: 08/26/2024 Prachi Jacob [facility] > Requested f/u: Return for Annual physical. Upcoming visit: 09/05/2025 Prachi Jacob [facility] ACTIONS TAKEN BY Sonya Zhou MA - Criteria met. Gastrointestinal Rx Protocol (H2 blockers, PPIs, stool softeners, laxatives) - omeprazole Criteria met; renew for up to 12 months. Visit in the past 24 months: Yes documented in this encounter Plan of Treatment Upcoming Encounters Date Type Department Care Team (Late st Contact Info) Description 02/17/2025 1:00 PM EST Office Visit [address] [place] [address] Prachi Jacob [address] [place] [address], [address] [place] [phone] [email or web address] 09/05/2025 4:00 PM EDT Office Visit [address] [place] [address] Prachi Jacob [address] [place] [address], [address] [place] [address] [email or web address] documented as of this encounter Visit Diagnoses Diagnosis Gastroesophageal reflux disease without esophagitis Esophageal reflux documented in this encounter Additional Health Concerns Assessment Noted Time PHQ-2 Depression Total Score: 0 08/20/19 25 2:35 PM EDT documented as of this encounter Care Teams Conservation Agent Relationship Specialty Start Date End Date NidiaPrachi [address] [place] [address], [address] [place] [address] [email or web address] PCP - General Family Medicine 08/14/23 Jie Romero NP [email or web address] Historical LMR Provider 01/26/17 documented as of this encounter Additional Source Comments The information contained in this document represents components of the legal health record. It is not the complete legal health record.[facility]
--- OUTSIDE RECORDS SUMMARY | 2024-12-21 09:09 | XMS_ITS | Patient Health Record ---
Author Organization [facility] Address [address] [place] [address] Care Team Providers Care Newsroom Intern Name Role Phone NONE, NONE Primary Care Provider Иван Monzon Unavailable [phone] Reason For Referral No Information Medications Medication SIG (Take, Route, Frequency, Duration) Notes Start Date End Date Status Aspir-Low 81 MG 1 tablet Orally Once a day for 30 day(s) Active Multi Vitamin/Minerals - as directed Ora lly once a day Active Advil 200 MG 1 tablet with food o r milk as needed Orally prn Active Immunizations Vaccine Route Administration Date Status Comme nts Influenza Unknown 01/02/2019 Administered Social History Tobacco Use: Social History Observation Description Date Details (start date - stop date) Former Smoker NA - NA Tobacco Use/Smoking Question Answer Notes Patient is a former smoker How long has it been since you last smoked? > 10 years Alcohol Screen Question Answer Notes Did you have a drink contain ing alcohol in the past year? Yes How often did you have a dri nk containing alcohol in the past year? 2 to 4 times a month (2 points) How many drinks did you have on a typical day when you were drinking in the past year? 1 or 2 drinks (0 point) How often did you have 6 or more drinks on one occasion in the past year? Never (0 point) Points 2 Interpretation Negative Section Notes: Nonsmoker; occasional alcoho l Problems Problem Type SNOMED Code ICD Code Onset Dates Problem Status W/U Status Risk Notes Problem [id number] Encounter for screening for malignant neoplasm of colon (Z12.11) Active confirmed Problem [id number] Preprocedural examination (Z01.818) Active confirmed Plan Of Treatment Future Test Test Name Order Date COLONOSCOPY 05/08/2019 Next Appt Details Provider Name:Иван Hunt , 03/12/2025 03:40:00 PM, [address], [address], [place], [address], Insurance Providers Payer Name Payer Address Payer Phone Subscriber Number Group Number Insured Name Patient Relationship to Insured Coverage Start Date Coverage End Date MEDICARE OF [place] [address] [place] [address] [phone] [id number] LESLYE DOTSON Self - patient is the insured A[employer] (No Referral) [address] [address] [place] [address] [id number] ROSEY ROOT LESLYE Self - patient is the insured Medical (General) History Medical History History ICD Code Denies SD,DM,CVA,Lung disease,renal dise ase GERD-EGD in 1998-no esophagi tis nor Jaime's esophagus--her GERD has been asymptomatic and has not needed any medication Negative screening colonoscopy in [facility] of 2008 Surgical History Surgery Date(Month/Year) Tubal ligation Ovarian cyst removed Breast augmentation
--- OUTSIDE RECORDS SUMMARY | 2024-12-21 09:09 | XMS_ITS | Encounter Summary ---
Author Organization [facility] Address [address] [place] [address] Phone Care Team Providers Care Alarm Service Technician Name Role Phone Marco Wilde MD Unavailable Chelsey Saini NP Unavailable [phone] Jie Romero PUPPY SITTER Unavailable [phone] Jie Romero PUPPY SITTER Primary Care Provider Unknown, Unknown Primary Care Provider Prachi Samuels Primary Care Provider Encounter Details Date Type Department Care Team (Late st Contact Info) Description 05/22/2017 Ancillary Orders [address] [address] Yoko Bonilla MD [address] [place] [address] Orthopedics & Sports Medicine, [place] [address] [email or web address] Pain of right hand Social History Tobacco Use Types Packs/Day Years [...] Description 02/17/2025 1:00 PM EST Office Visit [address] [place] [address] Nidia Prachi [address] [place] [address], [address] [place] [address] [email or web address] 09/05/2025 4:00 PM EDT Office Visit [address] [place] [address] Nidia Prachi [address] [place] [address], [address] [place] [address] [email or web address] documented as of this encounter Results * XR HAND 3 OR MORE VIEWS (RIGHT) (05/22/2017 2:23 PM EST) Narrative Izabella May Y - 05/22/2017 2:23 PM EST This image report has been auto-finalized and has not been read by a Radiologist. Interpretation has been included in the provider encounter note for this date of service. us Yoko Bonilla MD IMG XR UPPER EXTREMITY Final Result documented in this encounter Visit Diagnoses Diagnosis Pain of right hand Pain of right hand documented in this encounter Additional Health Concerns Infection Onset Date Last Indicated Resolved Time CoV-Presumed 04/04/2022 04/04/2022 04/25/2022 1:21 AM EST Assessment Noted Time PHQ-2 Depression Total Score: 0 04/25/19 18 2:18 PM EST documented as of this encounter Care Teams Alarm Service Technician Relationship Specialty Start Date End Date Jie Romero NP [address] [phone] PCP - General Family Medicine 04/07/17 06/11/23 Unknown, Unknown, PCP - General 06/12/23 08/13/23 Crissy-Prachi Anaay [address] [facility] [place] [address] PCP - General Family Medicine 08/14/23 Marco Wilde MD [address] [place] [address] Historical LMR Provider 01/26/17 04/17/21 Chelsey Saini NP [address] [place] [phone] Historical LMR Provider 01/26/17 2 Jie Romero NP [address] [place] [phone] [email or web address] Historical LMR Provider 01/26/17 documented as of this encounter Additional Source Comments The information contained in this document represents components of the legal health record. It is not the complete legal health record.[facility]
== END 2024-12-21 09:07 | disposition home or self-care (01) ==
LOC: HO.MAMMO 09:06
PROVIDERS: Visit Provider Student in an Organized Health Care Education/Training Program
DX: Z12.31 Encounter for screening mammogram for malignant neoplasm of breast (principal)
CPT/HCPCS: 77063; 77067

== ENCOUNTER → 2024-12-21 09:15 | Outpatient (BNV) | payer MEDICARE, SELFPAY | PROVIDERS: Visit Provider Internal Medicine | DX: Z12.31 Encounter for screening mammogram for malignant neoplasm of breast (principal) | CPT/HCPCS: 77063; 77067 ==